=== PATIENT | male | born 1950 | race Caucasian/White ===

== ENCOUNTER 2019-01-08 09:07 | Emergency (ER) | payer MEDICARE, MEDICAID ==
[2019-01-08 09:08] VITALS: BMI 29.0
[2019-01-08 09:17] VITALS: TEMP 98.9
--- NOTE | 2019-01-08 10:00 | ED PDOC ---
Arrival/HPI - General Chief Complaint: Abnormal Skin Integrity Time Seen by Provider: 01/08/19 09:19 Historian: Patient - History of Present Illness Narrative History of Present Illness (Text): 01/08/19 09:59 A 68 year old male, with no significant past medical history, presents to the emergency department complaining of dark rash onto bilateral lower extremities for a little over a year. Patient reports he saw a face and fill packer 1 month ago and was prescribed Keflex and Triamcinolone. He notes having scratched his left howard, which resulted in becoming swollen and tender, along with serosanguinous drainage. Patient denies any other complaints at this time. Patient admits to being a 1/2 pack daily smoker. Associated Symptoms (Text): 01/08/19 10:27 Patient reports a dark rash on bilateral lower extremities for over 1 year. He scratched 1 of the rashes on his left howard 3 weeks ago. It has now become swollen with some serosanguineous drainage. Past Medical History - Provider Review Nursing Documentation Reviewed: Yes - Infectious Disease Hx of Infectious Diseases: None - Cardiac Hx Cardiac Disorders: No - Endocrine/Metabolic Hx Diabetes Mellitus Type 2: Yes - Psychiatric Hx Substance Use: No - Past Surgical History Past Surgical History: No Previous Family/Social History - Physician Review Nursing Documentation Reviewed: Yes Family/Social History: No Known Family HX Smoking Status: Light Smoker < 10 Cigarettes Daily Hx Alcohol Use: No Hx Substance Use: No Hx Substance Use Treatment: No Allergies/Home Meds Allergies/Adverse Reactions: Allergies No Known Allergies Allergy (Verified 09/30/12 08:44) Home Medications: Home Meds Medication Instructions Recorded Confirmed Cephalexin [cephalexin] 500 mg PO 01/08/19 MetFORMIN [glucOPHAGE] 1,000 mg PO BID 01/08/19 01/08/19 SITagliptin [Januvia] 100 mg PO DAILY 01/08/19 01/08/19 Triamcinolone 0.1% [Triamcinolone 0.1 TP 01/08/19 0.1% Cream] Review of Systems - Physician Review All systems were reviewed & negative as marked: Yes - Review of Systems Constitutional: absent: Fatigue, Fevers, Night Sweats Respiratory: Normal Cardiovascular: Normal Gastrointestinal: Normal Skin: Rash (dark rash onto bilatera lower extremities; patient notes having scratched his left howard, which resulted in becoming swollen and tender, along with serosanguinous drainage.) Physical Exam Vital Signs Reviewed: Yes Vital Signs Temp Pulse Resp BP Pulse Ox 01/08/19 09:12 98.9 F 102 H 20 151/80 H 98 Temperature: Afebrile Blood Pressure: Normal Pulse: Regular Respiratory Rate: Normal Appearance: Positive for: Well-Appearing, Non-Toxic, Comfortable Pain Distress: None Mental Status: Positive for: Alert and Oriented X 3 - Systems Exam Head: Present: Atraumatic, Normocephalic Neck: Present: Normal Range of Motion Respiratory/Chest: Present: Clear to Auscultation, Good Air Exchange. No: Respiratory Distress, Accessory Muscle Use Cardiovascular: Present: Regular Rate and Rhythm, Normal S1, S2. No: Murmurs Abdomen: No: Tenderness, Distention, Peritoneal Signs Back: Present: Normal Inspection Upper Extremity: Present: Normal Inspection. No: Cyanosis, Edema Lower Extremity: Present: Tenderness (left howard scratched rash), Swelling (left howard scratched rash), Other (serosanguinous drainage to left howard where patient scratched rash.) Neurological: Present: GCS=15, CN II-XII Intact, Speech Normal Skin: Present: Rashes (bilateral lower extremity flat dark patches ranging in size from 0.5 cm - 3 cm. No drainage/tenderness/swelling. ) Psychiatric: Present: Alert, Oriented x 3, Normal Insight, Normal Concentration Medical Decision Making ED Course and Treatment: 01/08/19 10:00 Impression: 68 year old male with dark rash onto bilateral lower extremities; patient scratched his left howard, which resulted in becoming swollen and tender, along with serosanguinous drainage. Physical exam shows bilateral skin lower extremity flat dark patches ranging in size from 0.5 cm - 3 cm; no drainage/swelling/tenderness; left howard where patient scratched his rash shows tenderness/swelling with serosanguinous drainage. Plan: -- Soft Tissue Ultrasound -- Labs -- Reassess and disposition Progress Notes: 01/08/19 13:04 Abscess incision and drainage. The abscess was prepped and draped in usual sterile fashion using Betadine and normal saline 1% plain local lidocaine anesthesia was injected. The abscess was incised with a #11 blade. Serosanguineous purulent material was expressed. Iodoform gauze packing was placed. Sterile dressing was applied. A wound culture was obtained. Tolerated the procedure well. - Lab Interpretations I have reviewed the lab results: Yes - RAD Interpretation Radiology Orders: 01/08/19 09:43 US SOFT TISSUE COMPLETE [US] Stat - Scribe Statement The provider has reviewed the documentation as recorded by the Rojelio Hodges Provider Scribe Attestation: All medical record entries made by the Scribe were at my direction and personally dictated by me. I have reviewed the chart and agree that the record accurately reflects my personal performance of the history, physical exam, medical decision making, and the department course for this patient. I have also personally directed, reviewed, and agree with the discharge instructions and disposition. Disposition/Present on Arrival - Present on Arrival Any Indicators Present on Arrival: No History of DVT/PE: No History of Uncontrolled Diabetes: No Urinary Catheter: No History of Decub. Ulcer: No History Surgical Site Infection Following: None - Disposition Have Diagnosis and Disposition been Completed?: Yes Diagnosis: Leg abscess Disposition: HOME/ ROUTINE Disposition Time: 13:05 Patient Plan: Discharge Condition: IMPROVED Discharge Instructions (ExitCare): Abscess Incision and Drainage Additional Instructions: Packing removal in 2 days. Follow-up with PMD. Follow-up in ER as needed. Prescriptions: Amoxicillin/Clavulanate [Augmentin 875 MG-125 MG] 1 tab PO Q12 #20 tab Forms: [employer] ([place])
[2019-01-08 10:16] LABS: ALB/GLOB RATIO 1.3 (1.1-1.8); ALBUMIN 4.1 g/dL (3.0-4.8); ALT/SGPT 17 U/L (7-56); AST/SGOT 15 U/L (17-59); BLOOD UREA NITROGEN 28 mg/dL (7-21); CALCIUM 9.3 mg/dL (8.4-10.5); GFR NON-AFRICAN AMERICAN > 60
[2019-01-08 10:17] LABS: BASO # 0.06 {null, K/mm3} (0.0-2.0); BASO % 0.9 % (0.0-3.0); EOS # 0.6 (0.0-0.7); HEMOGLOBIN 15.3 g/dL (14.0-18.0); LYMPH # 2.6 (1.2-3.4); LYMPH % 36.9 % (22.0-35.0); MEAN CELL VOLUME 91.3 fl (80.0-105.0); MEAN CORPUSCULAR HEMOGLOBIN 31.5 pg (25.0-35.0); MEAN CORPUSCULAR HGB CONC 34.5 g/dl (31.0-37.0); MEAN PLATELET VOLUME 12.5 fl (7.0-11.0); MONO # 0.4 (0.1-0.6); MONO % 6.2 % (1.0-6.0); RBC 4.85 {null, 10^6/uL} (3.5-6.1); RED CELL DISTRIBUTION WIDTH 12.6 % (11.5-14.5); WHITE BLOOD COUNT 6.9 {null, 10^3/uL} (4.5-11.0)
[2019-01-08 11:33] VITALS: BP 142/83; PULSE 90; RESP 16; O2SAT 100
--- NOTE | 2019-01-08 11:46 | US ---
Date of service: 01/08/2019 HISTORY: left howard abscess COMPARISON: None available. TECHNIQUE: High-resolution sonographic images of the area of concern in the mid howard FINDINGS: In the area of concern there is a 1.0 x 0.4 x 1.0 cm subcutaneous area of fluid. IMPRESSION: Small subcutaneous area of fluid in the area of concern.
[2019-01-08] MEDS ORDERED: Lidocaine 1% 5ml Abboject ONE (12:52)
== END 2019-01-08 13:24 | disposition home or self-care (01) ==
LOC: ED 09:07
DX: L02.416 Cutaneous abscess of left lower limb (principal); E11.9 Type 2 diabetes mellitus without complications